=== PATIENT | male | born 1955 | race African-American/Black ===

== ENCOUNTER → 2017-03-27 | Outpatient (CLI) | payer BC ==
[2015-11-29 09:37] VITALS: BP 126/68
[~2017-03-27] MED LIST: ACET325T9 PO; AMLO5TAB2 PO; ATOR10TA PO; ATOR40TA PO; ATOR40TA59 PO; CONTRAST GIVEN MC PRN; DIPH25CA58 PO; HYDR-2758 PO; IBUP200T44 PO; IBUPROFEN PO; IOHEXOL 240 MG/ML 50ML VIAL. PO ONE; IOHEXOL 300 MG/ML 100ML VIAL. IV ONE; NAPR220C4 PO; OMEG10005 PO; PROC10TA57 PO; SIMV20TA3 PO; SLEEPING PILL PO; TADA5TAB PO; TRAM50TA PO
--- NOTE | 2017-03-27 12:09 | RAD ---
CT of the chest, abdomen, and pelvis 03/27/2017 Indication: History of rectal cancer. Comparison study: CT of the chest abdomen and pelvis February 19, 2016 Technique: Multidetector CT imaging of the chest, abdomen, and pelvis was obtained following the administration of IV contrast. Findings: Chest: Heart size is normal. No pericardial effusion is seen. Coronary calcification noted. No pathologically enlarged mediastinal adenopathy is appreciated. Calcified lymph nodes in the left hilum are similar to prior exam. Mild ectasia of the ascending thoracic aorta is stable. There is no pneumothorax, pleural effusion, or acute appearing infiltrate identified. No concerning pulmonary nodules or masses are identified. Abdomen and Pelvis: Multifocal hepatic calcifications are similar to comparison exam. The liver is otherwise stable in appearance. The gallbladder is unremarkable. Mild nodularity of the adrenal glands is stable. Spleen is normal in appearance. The kidneys are unremarkable in appearance. Peripancreatic calcifications are also stable from prior study. The pancreas is otherwise unremarkable. No new pathologically enlarged lymphadenopathy is seen in the abdomen or pelvis. The left inferior pelvis is partially obscured due to beam hardening artifact from a hip prosthesis. The left lower quadrant colostomy is again noted. No bowel obstruction is identified. Calcification or surgical clips in the rectal stump similar to prior study. No significant free fluid or free air seen in the abdomen or pelvis. Hypertrophic changes involving multiple rib articulations noted. Transitional sacral anatomy again noted. No acute osseous abnormality is seen. Impression: No evidence of acute cardiopulmonary or intra-abdominal abnormality. No evidence of new recurrent or metastatic disease. PQRS Compliance Statement: One or more of the following individualized dose reduction techniques were utilized for this examination: 1. Automated exposure control 2. Adjustment of the mA and/or kV according to patient size 3. Use of iterative reconstruction technique
== END | disposition home or self-care (01) ==
LOC: CT 09:49
PROVIDERS: ATTEND Internal Medicine Hematology & Oncology
DX: C20 Malignant neoplasm of rectum (principal); M87.052 Idiopathic aseptic necrosis of left femur; Z85.048 Personal history of other malignant neoplasm of rectum, rectosigmoid junction, and anus
CPT/HCPCS: 71260; 74177; Q9966; Q9967

== ENCOUNTER → 2018-03-30 | Outpatient (CLI) | payer BC ==
[2015-11-29 09:37] VITALS: BP 126/68
[~2018-03-30] MED LIST changes: -AMLO5TAB2 PO; +AMLO5TAB7 PO; -CONTRAST GIVEN MC PRN; -HYDR-2758 PO; +HYDR-2761 PO
--- NOTE | 2018-03-30 12:38 | RAD ---
EXAM: CT Chest, Abdomen and Pelvis with IV contrast CLINICAL HISTORY: RESTAGING COLON CANCER COMPARISON: 03/27/2017, 02/19/2016 TECHNIQUE: Helical CT of the chest, abdomen and pelvis was performed following the administration of intravenous contrast. Oral contrast was administered. Axial, coronal and sagittal reformatted images were generated. ---PQRS compliance statement - One or more of the following individualized dose reduction techniques were utilized for this study: 1. Automated exposure control 2. Adjustment of the mA and/or kV according to patient size 3. Use of iterative reconstruction technique--- FINDINGS: Chest: Heart is not enlarged. Coronary artery calcifications are seen. No pericardial effusion. No pleural effusion or pneumothorax. No axillary lymphadenopathy. No mediastinal or hilar lymphadenopathy. A 4 mm left lower lobe pleural-based lung nodule (series 2 image 41) is stable to 02/19/2016. Minimal patchy opacities in the medial right lower lobe likely scarring/atelectasis. Abdomen and Pelvis: Coarse hepatic calcifications are grossly stable. Diffuse hypodense appearance of the liver likely hepatic steatosis. No definite new liver lesion. Gallbladder is unremarkable. No biliary ductal dilatation. Spleen is unremarkable. Stable left adrenal nodularity. Right adrenal gland is unremarkable. Pancreatic head and tail calcifications are seen. Duodenal diverticulum is noted. Symmetric nephrograms. No focal renal lesion. No hydronephrosis. No small or large bowel dilatation. Moderate colonic stool content is seen. Changes of prior left colon resection with left lower quadrant colostomy are seen. Appendix is normal. No abdominal or pelvic ascites. No abdominal or pelvic lymphadenopathy by size criteria. Bones: Changes of left hip arthroplasty are seen with associated streak artifact limiting evaluation of the pelvis. Multilevel degenerative changes are seen most prominent within the spine. IMPRESSION: 1. Essentially stable exam without evidence of thoracic, abdominal or pelvic lymphadenopathy. 2. Changes of distal colonic resection with left lower quadrant colostomy are seen. 3. Hepatic calcifications are again seen, stable. No definite new liver lesion is identified. 4. Background hepatic hypodensity may be seen with hepatic steatosis. 5. Stable 4 mm left lower lung nodule to 02/19/2016. Electronically signed by: David Hooper MD (03/30/2018 12:34 PM) [facility]
== END | disposition home or self-care (01) ==
LOC: CT 09:02
PROVIDERS: ATTEND Internal Medicine Hematology & Oncology
DX: K76.89 Other specified diseases of liver (principal); K57.10 Diverticulosis of small intestine without perforation or abscess without bleeding; I25.10 Atherosclerotic heart disease of native coronary artery without angina pectoris; R91.1 Solitary pulmonary nodule; Z85.048 Personal history of other malignant neoplasm of rectum, rectosigmoid junction, and anus
CPT/HCPCS: 71260; 74177

== ENCOUNTER → 2019-04-09 | Outpatient (CLI) | payer BC ==
[2015-11-29 09:37] VITALS: BP 126/68
[~2019-04-09] MED LIST changes: +AMLO5TAB10 PO; -AMLO5TAB7 PO; +SIMV20TA18 PO; -SIMV20TA3 PO
--- NOTE | 2019-04-10 17:06 | RAD ---
EXAM: CT OF THE CHEST, ABDOMEN AND PELVIS WITH CONTRAST. HISTORY: Rectal cancer. TECHNIQUE: Computed tomography of the chest, abdomen and pelvis was performed after the intravenous administration of 75 mL Omnipaque 300. COMPARISON: 03/30/2018. FINDINGS: Bone windows reveal no suspicious lesions. There are findings consistent with avascular necrosis of the right femoral head, involving at least 50% of the articular surface. A left total hip arthroplasty is noted. There are no pathologically enlarged mediastinal or axillary lymph nodes. There is no pleural or pericardial effusion. The heart is not enlarged. Lung windows reveal no infiltrates. Calcified hepatic lesions are unchanged. The largest spans approximately 2.2 x 1.8 cm in segment 2. The spleen, pancreas, gallbladder and kidneys are unremarkable. The left adrenal gland is thickened without a discrete mass. The adrenal glands are stable chronically. Calcified lymph nodes adjacent to the pancreatic uncinate process are also unchanged. There is no uncalcified lymphadenopathy. Another coarse calcification at the pancreatic tail is stable. A colostomy is noted along the left lower quadrant. A moderate parastomal hernia contains a short segment of the distal colon. Stool throughout the proximal colon is consistent with mild constipation. A short Yoselin's pouch is noted. There is no small bowel obstruction. IMPRESSION: 1. No evidence of active disease. 2. Calcified hepatic lesions have been stable chronically and may represent treated metastatic disease or old granulomatous disease. 3. Avascular necrosis of the right femoral head. *One or more of the following individualized dose reduction techniques were utilized for this examination: 1. Automated exposure control. 2. Adjustment of the mA and/or kV according to patient size. 3. Use of iterative reconstruction technique. Electronically signed by: Michael Pal MD (04/10/2019 5:03 PM) [facility]
== END | disposition home or self-care (01) ==
LOC: CT 07:42
PROVIDERS: ATTEND Internal Medicine Hematology & Oncology
DX: C20 Malignant neoplasm of rectum (principal); K82.8 Other specified diseases of gallbladder; M87.9 Osteonecrosis, unspecified; K59.00 Constipation, unspecified; K43.5 Parastomal hernia without obstruction or gangrene; K76.89 Other specified diseases of liver
CPT/HCPCS: 71260; 74177; Q9966; Q9967

== ENCOUNTER → 2020-05-16 | Outpatient (CLI) | payer MEDICARE ==
[2015-11-29 09:37] VITALS: BP 126/68
[~2020-05-16] MED LIST changes: +AMLO-186 PO; -AMLO5TAB10 PO; +CONTRAST GIVEN. MC PRN; -IOHEXOL 300 MG/ML 100ML VIAL. IV ONE; +IOHEXOL 300 MG/ML 100ML VIAL. PO ONE
[2020-05-16 08:48] LABS: CREATININE 1.3 mg/dL (0.7-1.3)
--- NOTE | 2020-05-16 17:33 | RAD ---
EXAM: CT Abdomen and Pelvis with IV contrast CLINICAL HISTORY: UPPER ABDOMINAL PAIN. H/O COLON CARCINOMA / Spl. Instructions: IV OMNI 300 75 MLS A ND PO OMNI 240 50 MLS / History: . COMPARISON: none TECHNIQUE: Helical CT of the abdomen and pelvis was performed following the administration of intrave nous contrast. Axial, coronal and sagittal reformatted images were generated. PQRS compliance statement - One or more of the following individualized dose reduction techniques wer e utilized for this study: 1. Automated exposure control 2. Adjustment of the mA and/or kV according to patient size 3. Use of iterative reconstruction technique FINDINGS: Lower Chest: Lung bases are clear. Abdomen and Pelvis: Calcified hepatic lesions are seen, possibly previously treated metastatic foci. 6 mm left hepatic lo be hypodense lesion series 2 image 21) is stable, indeterminate. Gallbladder is normal. Spleen is unr emarkable. Nodular thickening of the adrenal glands is essentially unchanged. Symmetric nephrograms. No focal renal lesion. No hydronephrosis. No hydroureter. Bladder is unremarkable. Appendix is normal. Moderate to large volume colonic stool content is seen. Left lower quadrant colos maki with parastomal herniation. No associated obstruction or fluid collection. Colonic diverticula a re seen. No diverticulitis. Costello pouch is seen. 16 mm low-density lesion appears to protrude into the duodenum at the level of the first-second portion of the duodenum. Calcifications about the pancr eatic head and tail likely from calcified lymph nodes. No abdominal or pelvic ascites. Aortic calcifications are seen. Presacral infiltration. No abdominal or pelvic lymphadenopathy. Small fat-containing periumbilical hernia is seen. Aorta is unremarkable. Seminal vesicle calcificati ons nodularity is seen. Streak artifact limits evaluation of the pelvis. Bones: Left hip joint arthroplasty with associated streak artifact. Right femoral head osteonecrosis is agai n seen. IMPRESSION: 1. Changes of left lower quadrant and colostomy with parastomal herniation, without associated infla mmatory change. 2. No abdominal or pelvic lymphadenopathy. 3. Subcentimeter low-density left hepatic lobe lesion and calcified hepatic lesions are essentially stable. 4. Low density nodularity within the duodenum is nonspecific, possibly lipoma or other duodenal lesi on. This can be correlated with endoscopy if not previously performed. 5. Nodularity of the adrenal glands is unchanged. Electronically signed by: David Hooper MD (05/16/2020 5:31 PM) [id number]
== END ==
LOC: CT 08:04
PROVIDERS: ATTEND Internal Medicine
DX: C18.9 Malignant neoplasm of colon, unspecified (principal); K42.9 Umbilical hernia without obstruction or gangrene; K76.9 Liver disease, unspecified
CPT/HCPCS: 36415; 74177; 82565; 84520; Q9966; Q9967